=== PATIENT | male | born 1995 ===

== ENCOUNTER 2019-02-20 22:47 | Emergency (ER) | payer OTHER ==
[~2019-02-20] VITALS: Ht 193 cm; Wt 122.5 kg
== END 2019-02-21 00:25 | disposition home or self-care (01) ==
LOC: ED 22:47
PROC: 2W3CX1Z Immobilization of Right Lower Arm using Splint (ICD-10-PCS; principal; 2019-02-20)
DX: S62.001A Unspecified fracture of navicular [scaphoid] bone of right wrist, initial encounter for closed fracture (principal); Z87.891 Personal history of nicotine dependence; W01.0XXA Fall on same level from slipping, tripping and stumbling without subsequent striking against object, initial encounter; Y93.68 Activity, volleyball (beach) (court)
CPT/HCPCS: 29125; 73110; 99283-25